=== PATIENT | male | born 1990 | race Caucasian/White ===

== ENCOUNTER 2023-05-05 16:56 | Emergency (ER) | payer SELFPAY ==
[~2023-05-05] VITALS: Ht 175.3 cm; Wt 99.8 kg
[2023-05-05 17:18] VITALS: O2SAT 100
[2023-05-05] MEDS ORDERED: ULTRAM 50MG50 MG PO (18:49)
[2023-05-05] MEDS ORDERED: PREDNISONE20 MG PO (18:49)
== END 2023-05-05 18:54 | disposition home or self-care (01) ==
LOC: ER 18:00
DX: M25.561 Pain in right knee (principal); M25.461 Effusion, right knee; N18.9 Chronic kidney disease, unspecified; M10.9 Gout, unspecified
CPT/HCPCS: 99282